=== PATIENT | female | born 1975 | race Caucasian/White ===

== ENCOUNTER → 2019-04-23 | Outpatient (CLI) | payer BC ==
--- NOTE | 2019-04-25 09:04 | Diagnostic Imaging Report ---
INDICATION: Routine screening. Comparison is made with prior mammogram 09/07/2011 and 09/03/2010. 2-D and 3-D bilateral screening mammography was performed with a Computer Aided Detection (CAD) system. 3-D tomosynthesis was also performed and reviewed. FINDINGS: Both breasts remain heterogeneously dense, limiting the sensitivity of mammography. The parenchymal pattern is stable. No mass or malignant appearing microcalcifications are seen. The axillae are unremarkable. IMPRESSION: No mammographic features suspicious for malignancy are identified. ACR BI-RADS Category 1: Negative. Result letter will be mailed to the patient. Note: At least 10% of breast cancer is not imaged by mammography. Dictated by: Dictated on workstation # [id number]
== END ==
LOC: RAD 07:48
PROVIDERS: ATTEND Obstetrics & Gynecology Female Pelvic Medicine and Reconstructive Surgery
DX: Z12.31 Encounter for screening mammogram for malignant neoplasm of breast (principal)
CPT/HCPCS: 77067

== ENCOUNTER → 2021-07-26 | Outpatient (CLI) | payer BC ==
--- NOTE | 2021-07-26 12:03 | Diagnostic Imaging Report ---
INDICATION: Routine screening. Comparison is made with prior mammogram from 04/23/2019. 2-D and 3-D bilateral screening mammography was performed with CAD. Both breasts show marked parenchymal heterogeneity and increased density, limiting the sensitivity of mammography. There is an area of density in the region of the left axillary tail which appears more prominent than prior exam. Additional views are recommended. Right breast unremarkable. There are benign calcifications bilaterally. No malignant-appearing microcalcifications are seen. IMPRESSION: BI-RADS 0 Left breast density. Additional views recommended including spot compression views as well as exaggerated CC views. ACR BI-RADS Category 0: Incomplete. (Needs additional imaging evaluation). Result letter will be mailed to the patient. Note: At least 10% of breast cancer is not imaged by mammography. Dictated by: Dictated on workstation # [id number]
== END ==
LOC: RAD 09:30
PROVIDERS: ATTEND Obstetrics & Gynecology Female Pelvic Medicine and Reconstructive Surgery
DX: Z12.31 Encounter for screening mammogram for malignant neoplasm of breast (principal); R92.8 Other abnormal and inconclusive findings on diagnostic imaging of breast
CPT/HCPCS: 77063; 77067

== ENCOUNTER → 2021-08-26 | Outpatient (CLI) | payer BC ==
--- NOTE | 2021-08-26 10:58 | Diagnostic Imaging Report ---
INDICATION: Left breast density. Correlation is made with diagnostic mammogram earlier the same day as well as screening mammogram from 07/26/2021. Sonographic interrogation upper outer left breast posterior depth was performed. No sonographic abnormality is seen. No discrete solid or cystic mass is detected. IMPRESSION: No sonographic abnormality is detected. Patient may return to routine annual screening mammography. ACR BI-RADS Category 1: Negative. Result letter will be mailed to the patient. Note: At least 10% of breast cancer is not imaged by mammography. BI-RADS Category 1 Dictated by: Dictated on workstation # [id number]
--- NOTE | 2021-08-26 16:04 | Diagnostic Imaging Report ---
INDICATION: Left breast density. Patient presents for additional views. Unilateral left 2-D and 3-D diagnostic mammography was performed with CAD. This includes spot compression ML, conventional 90 degree lateral as well as exaggerated CC views. Additional views fail to demonstrate a discrete mass. The area of density in the region of the left axilla most likely represents superimposed tissue. No suspicious microcalcifications are seen. IMPRESSION: BI-RADS 0 Additional views fail to demonstrate a discrete mass. Even so, directed sonographic interrogation in the upper outer left breast posterior depth is recommended and will be performed today ACR BI-RADS Category 0: Incomplete. (Needs additional imaging evaluation). Result letter will be mailed to the patient. Note: At least 10% of breast cancer is not imaged by mammography. Dictated by: Dictated on workstation # [id number]
== END ==
LOC: RAD 09:42
PROVIDERS: ATTEND Obstetrics & Gynecology Female Pelvic Medicine and Reconstructive Surgery
DX: R92.2 Inconclusive mammogram (principal)
CPT/HCPCS: 76642; 77065; G0279